=== PATIENT | male | born 1985 ===

== ENCOUNTER 2018-10-14 17:16 | Emergency (ER) | payer SELFPAY ==
[2018-10-14 17:26] VITALS: RESP 20
[2018-10-14] MEDS ORDERED: Tdap Vaccine 0.5 ml Vial (10-64 yrs) IM ONE ×2 (17:50→18:09)
[2018-10-14] MEDS ORDERED: Lidocaine 1% Inj (20ml) INFIL ONE (17:51)
[2018-10-14] MEDS ORDERED: Lidocaine Hydrochloride 10 ML INJ ONE (18:08)
--- NOTE | 2018-10-14 18:15 | C.PDOC ---
History Of Present Illness 33 year old male presents to the ED for evaluation after sustaining an injury to his right 4th finger at around 1500 today. Patient states he accidentally cut his finger with a table saw. Patient's last tetanus immunization is unknown. He denies extremity numbness/weakness or any other injuries at this time. Time Seen by Provider: 10/14/18 17:44 Chief Complaint (Nursing): Abnormal Skin Integrity History Per: Patient History/Exam Limitations: no limitations Onset/Duration Of Symptoms: Hrs Current Symptoms Are (Timing): Still Present Location Of Injury: Right: Hand (4th finger ) Quality Of Symptoms: Painful Additional History Per: Patient Past Medical History Reviewed: Historical Data, Nursing Documentation, Vital Signs Vital Signs: Last Vital Signs Temp 98.5 F 10/14/18 17:24 Pulse 67 10/14/18 17:24 Resp 20 10/14/18 17:24 BP 118/80 10/14/18 17:24 Pulse Ox 96 10/14/18 17:24 - Medical History PMH: No Chronic Diseases Surgical History: No Surg Hx Family History: States: Unknown Family Hx - Social History Hx Alcohol Use: No Hx Substance Use: No - Immunization History Hx Tetanus Toxoid Vaccination: No Hx Influenza Vaccination: No Hx Pneumococcal Vaccination: No Review Of Systems Skin: Positive for: Lesions (laceration to right 4th finger ) Neurological: Negative for: Weakness, Numbness Physical Exam - Physical Exam Appears: Non-toxic, No Acute Distress Skin: Normal Color, Warm, Dry, Other (irregular, deep laceration over palmar surface of right 4th distal phalanx from dip that extends distally towards tip of finger. curled skin at fiingertip that when uncurled fills in gouged area. no nail involvement.) Extremity: Normal ROM (able to flex and extend right 4th digit with pain), Capillary Refill (less than 2 seconds ) Pulses: Left Radial: Normal, Right Radial: Normal Neurological/Psych: Oriented x3, Normal Speech, Normal Cognition, Normal Sensation ED Course And Treatment O2 Sat by Pulse Oximetry: 96 (on RA ) Pulse Ox Interpretation: Normal Laceration - Laceration Repair right 4th finger Wound Length (In cm): 3 Description Of Wound: Irregular Wound Cleansed With: Betadine, Sterile Saline Anesthesia: Lidocaine 1% Wound Examination: Irrigated With Saline, No FB With Wound Exploration, No Tendon Injury With Wound Exploration Wound Closure: Suture (4-0 nylon 4 loose sutures) Suture Technique And Material Used: Interrupted Wound Complexity: Simple Medical Decision Making Medical Decision Making: Impression: 33 year old male with laceration to right 4th finger Plan: * Right hand 4th digit XR * Tetanus IM * Motrin PO * reassess and disposition * Ancef iv Progress: Right hand 4th digit XR ordered and reviewed. Tetanus IM administered. Motrin PO given. Ancef iv given. discussed with Dr Remy, covering hand surg marielos today. will place few sutures loosely and he can f/u with her tomorrow, needs to call. rx for percocet and keflex given, finger splinted. Disposition Counseled Patient/Family Regarding: Studies Performed, Diagnosis, Need For Followup, Rx Given - Disposition Referrals: Saundra Mane MD [Staff Provider] - Disposition: HOME/ ROUTINE Disposition Time: 21:04 Condition: GOOD Additional Instructions: Llame a la Dra. Antonietta storey para concertar la joe ms pronto; dgale que se le jessica hoy en la [facility] de emergencias. [place] los antibiticos segn lo prescrito. [place] ibuprofeno por va oral cada 6 horas. [place] percocet juan pastilla cada 4 a 6 horas para el dolor si es necesario. No conduzca ni opere maquinaria con desi medicamento. No quitar el apsito de la mano. Call Dr Mane tomorrow to make soonest appointment- tell her you were seen in ER today. Take antibiotics as prescribed. Take ibuprofen by mouth every 6 hours. Take percocet one pill every 4 - 6 hours for pain if needed. Do not drive or operate machinery with this medicine. Do not remove dressing from hand. Prescriptions: Cephalexin [cephalexin] 500 mg PO Q6 #28 cap Ibuprofen [Motrin] 600 mg PO TID #30 tab oxyCODONE/Acetaminophen [Percocet 5/325 mg Tab] 1 ea PO Q6 #12 tab Instructions: Laceration Repair With Stitches (DC), Finger Fracture (DC) Forms: Gen Discharge Inst [facility], [employer] ([place]), Work Excuse Print Language: ESTONIAN - Clinical Impression Clinical Impression: Laceration of right ring finger, Fracture of phalanx of right ring finger - PA / [employer]ACH[employer] / Resident Statement MD/DO has reviewed & agrees with the documentation as recorded. - Scribe Statement The provider has reviewed the documentation as recorded by the Scribe (Tari Sandoval) All medical record entries made by the Scribe were at my direction and per sonally dictated by me. I have reviewed the chart and agree that the record accurately reflects my personal performance of the history, physical exam, medical decision making, and the department course for this patient. I have also personally directed, reviewed, and agree with the discharge instructions and disposition.
[2018-10-14] MEDS ORDERED: ceFAZolin 1 gm in NS 1 GM/100 ML BAG IVPB ONE (18:41)
--- NOTE | 2018-10-14 18:46 | RAD ---
Date of service: 10/14/2018 PROCEDURE: Right ring finger radiographs. HISTORY: Laceration, eval for fx COMPARISON: None available. TECHNIQUE: AP radiograph of the right hand, as well as spot oblique and lateral images of ring finger were obtained. FINDINGS: RIGHT RING FINGER: Comminuted fracture deformity of the 4th distal phalanx. Remainder of the right hand (as seen on the AP view) grossly unremarkable. JOINTS: No dislocation. SOFT TISSUES: Soft tissue swelling and laceration. No evidence of radiopaque foreign body. OTHER FINDINGS: None. IMPRESSION: Soft tissue swelling and laceration. Comminuted fracture deformity of the 4th distal phalanx.
[2018-10-14] MEDS ORDERED: Lidocaine Hydrochloride 5 ML INJ ONE ×2 (20:08→20:11)
[2018-10-14] MEDS ORDERED: Lidocaine 1% PF (5ml) Amp INJ ONE (20:08)
[2018-10-14 21:02] VITALS: BP 149/88; PULSE 64; TEMP 98.8
[2018-10-14] MEDS ORDERED: Oxycodone/Acetaminophen 5/325 mg Tab PO STA (21:02)
[2018-10-14 21:03] VITALS: O2SAT 96
[2018-10-14] MEDS ORDERED: Oxycodone/Acetaminophen 5/325 mg Tab ONE (21:09)
== END 2018-10-14 21:21 | disposition home or self-care (01) ==
LOC: C.ER 17:16
DX: S61.214A Laceration without foreign body of right ring finger without damage to nail, initial encounter (principal); S62.634A Displaced fracture of distal phalanx of right ring finger, initial encounter for closed fracture; W31.2XXA Contact with powered woodworking and forming machines, initial encounter
CPT/HCPCS: 12002; 73140; 90471; 90715; 96365; 99284; J0690